=== PATIENT | female | born 1970 | race Caucasian/White ===

== ENCOUNTER → 2016-11-29 | Outpatient (CLI) | payer OTHER ==
[~2016-11-29] MED LIST: BUPIVACAINE HCL 0.25% 10 ML VIAL As Ordered ONE; BUPIVACAINE HCL 0.25% 30 ML VIAL As Ordered ONE; TRIAMCINOLONE ACETONIDE SUSP 40 MG/ML VIAL (J3301) As Ordered ONE; diazePAM 5 MG TAB As Ordered ONE; oxyCODONE 5MG TAB As Ordered ONE
--- NOTE | 2016-12-06 00:01 | ECWPNPC ---
PATIENT NAME: NAVJOT CERDA : 1970 GENDER: FEMALE VISIT DATE: 11/29/2016 DISCHARGE DATE: 11/29/16 1416 VISIT LOCKED DATE TIME: PHYSICIAN: ANDREW IVEY RESOURCE: ANDREW IVEY REASON FOR APPOINTMENT 1. TPI-NECK/ARM HISTORY OF PRESENT ILLNESS HISTORY OF PRESENT ILLNESS: PAIN THE PATIENT DESCRIBES THE PAIN... FALL RISK SCREENING: SCREENING :NO FALLS IN THE PAST YEAR CURRENT MEDICATIONS TAKING NEXIUM 20 MG CAPSULE DELAYED RELEASE 1 CAPSULE ORALLY ONCE A DAY NEEDED, NOTES: [id number] MEDICATION LIST REVIEWED AND RECONCILED WITH THE PATIENT PAST MEDICAL HISTORY SEVERAL MINI STROKES REFLUX HX OF VON WILLIEBRANDS ALLERGIES SULFA (FOR ALLERGY USE ONLY): RASH: ALLERGY TETANUS-DIPHTHERIA TOXOIDS TD: ALLERGY PENICILLIN (FOR ALLERGIES USE ONLY): ALLERGY FLAGYL: RASH, BREATHING DIFFICULTIES: ALLERGY SOCIAL HISTORY GENERAL: TOBACCO USE ARE YOU A:NONSMOKER LEARNING BARRIERS / SPECIAL NEEDS ORIENTED TO PLAN OF CARE: PATIENT, PAIN MANAGEMENT PATIENT, ORIENTED TO PLAN OF CARE: PATIENT, PAIN MANAGEMENT PATIENT. NEW PATIENT PAIN DIARY TODAY'S VISITNOTES FROM 0-10, WHAT LEVEL IS YOUR PAIN TODAY?0 PAIN CLINIC PFS, CLERGY, PUBLIC HEALTH REFERRALS PFS REFERRAL NEEDED?NO CLERGY REFERRAL NEEDED?NO PUBLIC HEALTH REFERRAL NEEDED?NO WAS THE PROVIDER NOTIFIED OF ANY PERTINENT INFO?NO PFS REFERRAL NEEDED?NO CLERGY REFERRAL NEEDED?NO PUBLIC HEALTH REFERRAL NEEDED?NO WAS THE PROVIDER NOTIFIED OF ANY PERTINENT INFO?NO REVIEW OF SYSTEMS CONSTITUTIONAL: ANY CHANGE IN YOUR MEDICAL CONDITION? NO . CHILLS NO . FEVER NO . INFECTION: DO YOU HAVE NEW INFECTIONS? NO . DO YOU HAVE HISTORY OF MRSA? NO . MUSCULOSKELETAL: ANY NEW PATTERNS OF PAIN OR NUMBNESS? NO . GASTROENTEROLOGY: ANY NEW CHANGE IN BOWEL CONTROL? NO . GENITOURINARY: ANY NEW CHANGE IN BLADDER CONTROL? NO . IS THERE A CHANCE YOU COULD BE ? NO . HEMATOLOGY/LYMPH: DO YOU TAKE ANY BLOOD THINNERS? (FOR EXAMPLE- COUMADIN, PLAVIX, AGGRENOX, PLATEL, PRADAXA, OR XARELTO) NO . WHEN WAS YOUR LAST DOSE? DATE: TIME: . NEUROLOGY: HAVE YOU FALLEN IN THE PAST 6 MONTHS? NO . ANY NEW EXTREMITY NUMBNESS OR WEAKNESS? NO . CARDIOLOGY: DO YOU HAVE A PACEMAKER OR DEFIBRILLATOR? NO . RESPIRATORY: HAVE YOU BEEN SICK IN THE PAST WEEK? NO . FEVER NO . FLU LIKE SYMPTOMS? NO . COUGH NO . INTEGUMENTARY: DO YOU HAVE ANY RASHES OR OPEN SORES? NO . ALLERGIC/IMMUNO: ARE YOU ALLERGIC TO SHELLFISH OR IV DYE? NO . ANY NEW ALLERGIES? NO . PSYCHIATRIC: DO YOU HAVE THOUGHTS OF HURTING YOURSELF OR SOMEONE ELSE? NO . ARE YOU ABUSED, NEGLECTED, OR IN AN UNSAFE ENVIRONMENT? NO . ENDOCRINOLOGY: ARE YOU DIABETIC? NO . OTHER: DO YOU NEED ANY PRESCRIPTIONS? YES PRESCRIBED LYRICA BY AMPARO HAS NOT OBTAINED/DUE TO AUTHORIZATION ? . IF YES, PLEASE LIST: ____ . ANY NEW PROBLEMS WITH YOUR MEDICATIONS? NO . WHEN DID YOU LAST EAT? ____ . WHEN DID YOU LAST DRINK? ____ . WHAT DID YOU LAST DRINK? ____ . NAME OF PERSON DRIVING YOU HOME? ____ . DO YOU HAVE ANY OTHER QUESTIONS OR CONCERNS NO . REVIEWED BY: PROVIDER: . ASSESSMENTS MYALGIA - M79.1 (PRIMARY) PROCEDURES PN TRIGGER POINT INJECTION WITH STEROIDS PRE PROCEDURE DIAGNOSIS 1. MYALGIA 2. PAIN AT BILATERAL NECK AREA AND RIGHT SHOULDER AREA POST PROCEDURE DIAGNOSIS 1. MYALGIA 2. PAIN AT BILATERAL NECK AREA AND RIGHT SHOULDER AREA PROCEDURE TRIGGER POINT INJECTION AT BILATERAL NECK AREA AND RIGHT SHOULDER AREA SURGEON DR. ANDREW IVEY DIRECTOR CORPORATE COMMUNICATIONS NONE ANESTHESIA LOCAL PRE PROCEDURE NOTE THE PATIENT HAS A HISTORY OF CHRONIC PAIN AT THE RIGHT AND LEFT NECK AREA AND RIGHT SHOULDER AREA. I EVALUATE THE PATIENT AND REVIEWED THE CHART. THERE IS EVIDENCE OF BANDS OF TISSUE WITH RESTRICTION OF MOVEMENT AND PRESENCE OF TRIGGER POINT AT THE AFFECTED AREA. I WENT OVER THE RISKS, ALTERNATIVES, AND BENEFITS ASSOCIATED WITH THIS PROCEDURE. THE PATIENT WOULD LIKE TO PROCEED AND GIVE CONSENT TO PERFORMED THE PROCEDURE. THE PATIENT DENIES UNEXPLAINABLE WEIGHT LOSS, FEVER, CHILLS, OR NEW CHANGES IN URINARY OR BOWEL CONTROL DESCRIPTION OF PROCEDURE THE PATIENT WAS BROUGHT TO THE PROCEDURE ROOM AND PLACED IN THE SITTING POSITION. THE AREA WAS CLEANED WITH ALCOHOL. THE PROCEDURE WAS DONE USING ASEPTIC STERILE TECHNIQUE. I CHECKED LATERALITY AND THE LEVEL WHERE THE PROCEDURE WAS GOING TO BE PERFORMED WITH THE PATIENT AND THE SUPPORTING STAFF AT THE MOMENT OF THE TIME OUT IN THE PROCEDURE ROOM. USING A 25-GAUGE NEEDLE, TRIGGER POINTS WERE INJECTED AT THE RIGHT AND LEFT NECK AREA AND RIGHT SHOULDER AREA WITH A TOTAL OF 40 ML OF BUPIVACAINE 0.25% AND KENALOG 40 MG. THERE WAS NO EVIDENCE OF BLOOD, PARESTHESIA OR CEREBROSPINAL FLUID DURING THE PROCEDURE. THE PATIENT WAS SENT TO THE RECOVERY ROOM. THE PATIENT WAS MOVING THE EXTREMITIES AND DOING WELL. THERE WAS NO COMPLICATION DURING THE PROCEDURE POST PROCEDURE NOTE THE PATIENT WILL BE SEEN IN A FOLLOW UP IN THE NEXT FEW WEEKS. INSTRUCTIONS WERE GIVEN, QUESTIONS WERE ANSWERED, AND THE PATIENT EXPRESSED UNDERSTANDING AND AGREES WITH THE PLAN. INSTRUCTIONS WERE GIVEN, QUESTIONS WERE ANSWERED, PATIENT REPORTS UNDERSTANDING AND AGREES WITH THE PLAN. I, NNAMDI CONTE, DOCUMENTED THE ABOVE INFORMATION ACTING A SCRIBE FOR DR. IVEY. I HAVE REVIEWED THE ABOVE DOCUMENT, WRITTEN BY NNAMDI CONTE SCRIBLois AND I VERIFY THAT IT IS ACCURATE. PROCEDURE CODES 84013 INJECT TRIGGER POINTS 3/> FOLLOW UP 3 WEEKS ELECTRONICALLY SIGNED BY ANDREW IVEY MD ON 12/05/2016 AT 09:43 PM EST DISCLAIMER : THIS IS A VISIT SUMMARY EXTRACTED FROM THE [employer] CHART. IT IS NOT A COPY OF THE [employer] PROGRESS NOTE. PAPA
== END ==
LOC: M PAIN 13:00
PROVIDERS: ATTEND Anesthesiology
DX: G89.29 Other chronic pain (principal); M79.1 Myalgia; M54.2 Cervicalgia; M25.511 Pain in right shoulder; K21.9 Gastro-esophageal reflux disease without esophagitis; Z88.2 Allergy status to sulfonamides; Z88.7 Allergy status to serum and vaccine; Z88.0 Allergy status to penicillin; Z88.8 Allergy status to other drugs, medicaments and biological substances; Z79.899 Other long term (current) drug therapy; Z86.73 Personal history of transient ischemic attack (TIA), and cerebral infarction without residual deficits; Z86.2 Personal history of diseases of the blood and blood-forming organs and certain disorders involving the immune mechanism
CPT/HCPCS: 20553; J3301

== ENCOUNTER → 2016-12-18 | Outpatient (CLI) | payer OTHER ==
--- NOTE | 2017-01-03 01:21 | ECWPNPC ---
PATIENT NAME: NAVJOT CERDA : 1970 GENDER: FEMALE VISIT DATE: 12/18/2016 DISCHARGE DATE: 12/18/16 1113 VISIT LOCKED DATE TIME: PHYSICIAN: CAM MANNING RESOURCE: CAM MANNING REASON FOR APPOINTMENT 1. POST PROCEDURE-CERVICAL HISTORY OF PRESENT ILLNESS HISTORY OF PRESENT ILLNESS: PAIN THE PATIENT DESCRIBES THE PAIN... FALL RISK SCREENING: SCREENING :NO FALLS IN THE PAST YEAR TODAY'S VISIT: NOTES: S/P TRIGGER POINT INJECTIONS ON 11/29/2016. JUNCTIONS WERE TO THE RIGHT AND LEFT NECK AND THE RIGHT SHOULDER AREA. RATES PAIN LEVEL PRIOR TO INJECTION A 4-5/10 POSTINJECTION 12/21 AND HAS CONTINUED TILL THIS VISIT.. CURRENT MEDICATIONS TAKING NEXIUM 20 MG CAPSULE DELAYED RELEASE 1 CAPSULE ORALLY ONCE A DAY NEEDED MEDICATION LIST REVIEWED AND RECONCILED WITH THE PATIENT PAST MEDICAL HISTORY SEVERAL MINI STROKES REFLUX HX OF VON WILLIEBRANDS ALLERGIES SULFA (FOR ALLERGY USE ONLY): RASH: ALLERGY TETANUS-DIPHTHERIA TOXOIDS TD: ALLERGY PENICILLIN (FOR ALLERGIES USE ONLY): ALLERGY FLAGYL: RASH, BREATHING DIFFICULTIES: ALLERGY SOCIAL HISTORY GENERAL: TOBACCO USE ARE YOU A:NONSMOKER LEARNING BARRIERS / SPECIAL NEEDS ORIENTED TO PLAN OF CARE: PATIENT, PAIN MANAGEMENT PATIENT, ORIENTED TO PLAN OF CARE: PATIENT, PAIN MANAGEMENT PATIENT. NEW PATIENT PAIN DIARY TODAY'S VISITNOTES FROM 0-10, WHAT LEVEL IS YOUR PAIN TODAY?0 PAIN CLINIC PFS, CLERGY, PUBLIC HEALTH REFERRALS PFS REFERRAL NEEDED?NO CLERGY REFERRAL NEEDED?NO PUBLIC HEALTH REFERRAL NEEDED?NO WAS THE PROVIDER NOTIFIED OF ANY PERTINENT INFO?NO PFS REFERRAL NEEDED?NO CLERGY REFERRAL NEEDED?NO PUBLIC HEALTH REFERRAL NEEDED?NO WAS THE PROVIDER NOTIFIED OF ANY PERTINENT INFO?NO REVIEW OF SYSTEMS CONSTITUTIONAL: ANY CHANGE IN YOUR MEDICAL CONDITION? NO . CHILLS NO . FEVER NO . INFECTION: DO YOU HAVE NEW INFECTIONS? NO . DO YOU HAVE HISTORY OF MRSA? NO . MUSCULOSKELETAL: ANY NEW PATTERNS OF PAIN OR NUMBNESS? NO . GASTROENTEROLOGY: ANY NEW CHANGE IN BOWEL CONTROL? NO . ACID REFLUX INCREASED NEED FOR CLARITIN . GENITOURINARY: ANY NEW CHANGE IN BLADDER CONTROL? NO . IS THERE A CHANCE YOU COULD BE ? NO . HEMATOLOGY/LYMPH: DO YOU TAKE ANY BLOOD THINNERS? (FOR EXAMPLE- COUMADIN, PLAVIX, AGGRENOX, PLATEL, PRADAXA, OR XARELTO) NO . WHEN WAS YOUR LAST DOSE? DATE: TIME: . NEUROLOGY: HAVE YOU FALLEN IN THE PAST 6 MONTHS? NO . ANY NEW EXTREMITY NUMBNESS OR WEAKNESS? NO . CARDIOLOGY: DO YOU HAVE A PACEMAKER OR DEFIBRILLATOR? NO . RESPIRATORY: HAVE YOU BEEN SICK IN THE PAST WEEK? YES, SINUS CONGESTIONS AND NPC 3 WEEKS. [facility]--NO TREATMENT . FEVER NO . FLU LIKE SYMPTOMS? NO . COUGH YES, NON-PRODUCTIVE . INTEGUMENTARY: DO YOU HAVE ANY RASHES OR OPEN SORES? BASE OF NECK ON RIGHT . ALLERGIC/IMMUNO: ARE YOU ALLERGIC TO SHELLFISH OR IV DYE? NO . ANY NEW ALLERGIES? NO . PSYCHIATRIC: DO YOU HAVE THOUGHTS OF HURTING YOURSELF OR SOMEONE ELSE? NO . ARE YOU ABUSED, NEGLECTED, OR IN AN UNSAFE ENVIRONMENT? NO . ENDOCRINOLOGY: ARE YOU DIABETIC? NO . OTHER: DO YOU NEED ANY PRESCRIPTIONS? NO . IF YES, PLEASE LIST: ____ . ANY NEW PROBLEMS WITH YOUR MEDICATIONS? NO . WHEN DID YOU LAST EAT? ____ . WHEN DID YOU LAST DRINK? ____ . WHAT DID YOU LAST DRINK? ____ . NAME OF PERSON DRIVING YOU HOME? ____ . DO YOU HAVE ANY OTHER QUESTIONS OR CONCERNS YES, WAITING FOR APPROVAL FOR MEDS. . HEENT: GENERAL PERSISTANT COLD SYMPTOMS. HASAL CONGESTION . REVIEWED BY: PROVIDER: CAM COX . VITAL SIGNS WT 210 LBS, HT 67 IN, BMI 32.89 INDEX, BP 129/80 MM HG, HR 90 /MIN, RR 16 /MIN, TEMP 97.6 F, OXYGEN SAT % 97, NA INITIALS TL 0953, REVIEWED BY: AD. EXAMINATION GENERAL EXAMINATION: GENERAL APPEARANCE:FATIGUED, FEMALE IN NO ACUTE DISTRESS. PSYCHALERT , ORIENTED X 3 , APPROPRIATE MOOD AND AFFECT , TALKATIVE. HEENT:NORMOCEPHALIC, PAIN WITH MOVEMENT OF PINNA, MILD SINUS TENDERNESS, RIGHT SIDE.. NECK:RIGHT ANTERIOR CERVICAL LYMPHADENOPATHY DECREASED IN SIZE.. DECREASED NECK ROTATION TO RIGHT. CHEST:SUPRACLAVICULAR TENDERNESS BILATERALLY. FULL THORACIC EXCURSION NOTED.. LUNGS:CLEAR TO AUSCULTATION BILATERALLY, NO WHEEZES RALES OR RHONCHI. HEART:HEART RATE REGULAR S1 AND S2 NO MURMURS CLICKS OR RUBS.. MUSCULOSKELETAL:MUSCLE STRENGTH TESTING 5/5 BILATERAL UPPER EXTREMITIES. POINT TENDERNESS NOTED OVER CERVICAL SPINOUS PROCESSES AND ALONG THE CERVICAL PARASPINOUS MUSCLES. TIGHT FIBROUS BANDS IDENTIFIED OVER RIGHT SCAPULA AND RIGHT TRAPEZIUS MUSCLES. DECREASED RANGE OF MOTION WITH NECK ROTATION PARTICULARLY TO THE RIGHT. . JOINTS:TENDERNESS WITH PALPATION OVER THE MEDIAL AND LATERAL EPICONDYLE RIGHT SIDE FULL RANGE OF MOTION AT THE RIGHT ELBOW AND SHOULDER WELL ON THE LEFT.. PERIPHERAL PULSES:RADIAL PULSES INTACT 2+BILATERALLY. ULNAR PULSES 1+ BILATERALLY.. 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 ,FACET JOINT INJECTION MATERIAL WAS PRINTED,FACET JOINT INJECTION: YOUR EXPERIENCE MATERIAL WAS PRINTED,FACET JOINT INJECTION: YOUR EXPERIENCE MATERIAL WAS PRINTED. PREVENTIVE MEDICINE PAIN CLINIC TEACHING: MEDICATIONS PRINTED INFORMATION ON ZONISAMIDE GIVEN TO PATIENT, PATIENT GIVEN THE OPPORTUNITY TO ASK QUESTIONS REGARDING THE NEW MED.. PROCEDURE CODES FA211 ESTABILISHED PATIENT [facility] CHARGE DISPOSITION & COMMUNICATION FOLLOW UP AFTER INJECTION ELECTRONICALLY SIGNED BY ENMA STARR ON 01/02/2017 AT 01:35 PM EST DISCLAIMER : THIS IS A VISIT SUMMARY EXTRACTED FROM THE [employer] CHART. IT IS NOT A COPY OF THE [employer] PROGRESS NOTE. PAPA
== END ==
LOC: M PAIN 09:40
PROVIDERS: ATTEND Nurse Practitioner Family
DX: Z09 Encounter for follow-up examination after completed treatment for conditions other than malignant neoplasm (principal); G89.29 Other chronic pain; M79.1 Myalgia; M79.2 Neuralgia and neuritis, unspecified; M12.88 Other specific arthropathies, not elsewhere classified, other specified site; K21.9 Gastro-esophageal reflux disease without esophagitis; Z86.2 Personal history of diseases of the blood and blood-forming organs and certain disorders involving the immune mechanism; Z86.73 Personal history of transient ischemic attack (TIA), and cerebral infarction without residual deficits; Z88.2 Allergy status to sulfonamides; Z88.8 Allergy status to other drugs, medicaments and biological substances; Z88.0 Allergy status to penicillin; Z79.899 Other long term (current) drug therapy

== ENCOUNTER → 2017-09-02 | Outpatient (CLI) | payer OTHER ==
[~2017-09-02] MED LIST changes: -BUPIVACAINE HCL 0.25% 10 ML VIAL As Ordered ONE; -BUPIVACAINE HCL 0.25% 30 ML VIAL As Ordered ONE; +PROHANCE 279.3MG/ML 15ML VIAL (A9576) As Ordered ONE; +PROHANCE 279.3MG/ML 5ML VIAL (A9576) As Ordered ONE; -TRIAMCINOLONE ACETONIDE SUSP 40 MG/ML VIAL (J3301) As Ordered ONE; -diazePAM 5 MG TAB As Ordered ONE; -oxyCODONE 5MG TAB As Ordered ONE
--- NOTE | 2017-09-02 15:23 | REP ---
CAROTID ULTRASOUND: Real-time ultrasound evaluation and duplex Doppler interrogation of the extracranial carotid vasculature is performed. There is not significant plaquing or narrowing in the carotid bulbs, internal and external carotid arteries. Luminal narrowing is less than 50%. There is no evidence of hemodynamically significant stenosis of either internal carotid artery. Normal flow velocities are seen. The vertebral arteries demonstrate normal direction of flow. RIGHT LEFT Peak systolic velocity ICA 73.8 cm/s 82.8 cm/s End diastolic velocity ICA 28.2 cm/s 24 cm/s Peak systolic velocity CCA 136 cm/s 122 cm/s Peak systolic velocity ECA 83.9 cm/s 95.7 cm/s ICA/CCA ratio 0.54 0.68 IMPRESSION: Bilateral luminal narrowing of the internal carotid arteries less than 50%. No evidence of hemodynamically significant stenosis. Signed by Rivas Perez MD 09/02/2017 03:14 P
--- NOTE | 2017-09-06 07:59 | REP ---
MRI BRAIN AND INTERNAL AUDITORY CANALS WITHOUT AND WITH IV GADOLINIUM: HISTORY: Bilateral sensorineural hearing loss. Comparison study is from July 30, 2016. This was interpreted as showing no acute abnormality. TECHNIQUE: Axial and coronal T1 and T2-weighted sequences include turbo spin echo, FLAIR, spin echo and diffusion weighted sequences. The study includes thin section imaging through the internal auditory canals. The gadolinium enhancement dose 20 mL of intravenous ProHance. MRI FINDINGS: No bony calvarial lesion is seen. No intraorbital abnormality is seen. There is no MR evidence of significant paranasal sinus disease. Lateral, third, fourth ventricles are normal in size and position. Diffusion weighted scan show no evidence to suggest acute ischemia or other cause of restricted diffusion. Again noted on FLAIR and turbo spin echo T2-weighted scans are scattered subcortical and periventricular T2 hyperintensity bilaterally consistent with small vessel changes. These are unchanged from the study done a year ago. There is no evidence of intracranial mass lesion or infarction. No extra-axial fluid collection or midline shift is seen. Thin section imaging through the internal auditory canals demonstrate that the structures are symmetric. Seventh and eighth cranial nerves are unremarkable. Post gadolinium enhanced images show no intercanalicular or extra canalicular enhancement. There is no evidence of CP angle cistern mass. Vestibular and cochlear apparatus appear intact bilaterally. Enhancement is seen in normal vascular structures. No abnormal gadolinium enhancement is appreciated. IMPRESSION: Nonspecific foci of T2 hyperintensity again noted most compatible with small vessel atherosclerotic changes. Stable from the study done 1 year ago. Otherwise negative MRI study of the brain and internal auditory canals. Signed by Arnaldo Ambrocio MD 09/06/2017 02:54 P
== END ==
LOC: M RAD 13:51
PROVIDERS: ATTEND Otolaryngology
DX: H90.3 Sensorineural hearing loss, bilateral (principal); G90.01 Carotid sinus syncope
CPT/HCPCS: 70553; 93880; A9576

== ENCOUNTER → 2017-11-20 | Outpatient (CLI) | payer OTHER | LOC: M RAD 09:48 | DX: Z12.31 Encounter for screening mammogram for malignant neoplasm of breast (principal) | CPT/HCPCS: 77067 ==

== ENCOUNTER → 2018-01-21 | Outpatient (CLI) | payer OTHER | LOC: M LRY 18:08 | DX: M19.071 Primary osteoarthritis, right ankle and foot (principal) | CPT/HCPCS: 73564; G0463 ==

== ENCOUNTER 2018-03-05 06:11 | Inpatient (IN) | payer OTHER ==
[2018-03-05 06:41] LABS: HEMATOCRIT 41.2 % (36.0-47.0); HEMOGLOBIN 13.8 g/dl (12.0-15.5); MEAN CORPUSCULAR HGB CONC 33.5 g/dl (32.0-36.5); MEAN CORPUSCULAR VOLUME 86.6 fl (80.0-96.0); PLATELET COUNT, AUTOMATED 351 10^3/uL (150-450); RED BLOOD COUNT 4.76 10^6/uL (4.00-5.40); RED CELL DISTRIBUTION WIDTH 12.7 % (11.5-14.5); WHITE BLOOD COUNT 6.4 10^3/uL (4.0-10.0)
[2018-03-05] MEDS: LR 1,000 ML IV ×3 (06:45→15:42)
[2018-03-05 06:56] LABS: CONTROL LINE HCG INT CTR LINE PRESENT; HCG, SERUM QUALITATIVE NEGATIVE (NEGATIVE)
[2018-03-05] MEDS ORDERED: fentaNYL 100 MCG/2 ML INJECTION (J3010) As Ordered ×2 (06:58→07:45)
[2018-03-05] MEDS ORDERED: MIDAZOLAM INJ 2 MG/2 ML VIAL (J2250) As Ordered (06:58)
[2018-03-05] MEDS ORDERED: ROCURONIUM BROMIDE 50 MG/5 ML VIAL As Ordered ×2 (07:00→09:55)
[2018-03-05] MEDS ORDERED: PROPOFOL 200 MG/20 ML VIAL As Ordered (07:01)
[2018-03-05] MEDS ORDERED: LIDOCAINE 2% INJ 100 MG/5 ML SDV (FOR ANES.) As Ordered (07:01)
[2018-03-05] MEDS: CLINDAMYCIN 900 MG in APPROPRIATE DILUENT 1 EA IV ×3 (07:05→22:38)
[2018-03-05] MEDS ORDERED: SCOPOLAMINE 1MG TRANSDERMAL PATCH As Ordered (07:11)
[2018-03-05] MEDS: GENTAMICIN 100 MG in APPROPRIATE DILUENT 1 EA IV ×3 (07:51→22:38)
[2018-03-05] MEDS ORDERED: dexameTHASONE 4 MG/ML 1ML VIAL (J1100) As Ordered (07:57)
[2018-03-05] MEDS ORDERED: KETOROLAC 60 MG/2 ML VIAL (J1885) As Ordered (07:57)
[2018-03-05] MEDS ORDERED: ONDANSETRON 4MG/2ML VIAL (J2405) As Ordered (07:57)
[2018-03-05] MEDS: BUPIVACAINE HCL 0.25% 30 ML VIAL As Ordered (08:30)
[2018-03-05] MEDS ORDERED: HYDROmorphone HCL 2 MG/ML 1ML VIAL (J1170) As Ordered (08:57)
[2018-03-05] MEDS ORDERED: SUGAMMADEX SODIUM 500 MG/5 ML VIAL (BRIDION) As Ordered (10:19)
[2018-03-05] MEDS: BUPIVACAINE LIPOSOME/PF 1.3% 20 ML VIAL (13.3MG/ML)(EXPAREL) As Ordered (10:51)
[2018-03-05] MEDS: METHYLENE BLUE 0.5% (5MG/ML) 10 ML AMP (PROVAYBLUE)(Q9968 PER 1MG) As Ordered (10:51)
[2018-03-05] MEDS ORDERED: LABETALOL HCL 100 MG/20 ML VIAL As Ordered (11:30)
[2018-03-05] MEDS: ONDANSETRON 4MG/2ML VIAL (J2405) IV (12:24)
[2018-03-05] MEDS ORDERED: HYDROmorphone HCL 1 MG/ML SYRINGE (J1170) IV (12:30)
[2018-03-05] MEDS ORDERED: METOCLOPRAMIDE INJ 10MG/2ML VIAL (J2765) As Ordered (12:39)
[2018-03-05] MEDS: METOCLOPRAMIDE INJ 10MG/2ML VIAL (J2765) IV (12:52)
[2018-03-05] MEDS: fentaNYL 100 MCG/2 ML INJECTION (J3010) IV (12:55)
[2018-03-05] MEDS: PERCOCET 5MG/325MG TAB PO (12:55)
[2018-03-05 14:33] LABS: iSTAT CA++ 4.6 MG/DL (4.5-5.3)
[2018-03-05] MEDS ORDERED: KETOROLAC 30 MG/ML VIAL (J1885) IV (15:00)
[2018-03-05] MEDS ORDERED: ONDANSETRON 4MG/2ML VIAL (J2405) IV (15:15)
[2018-03-05] MEDS ORDERED: PROMETHAZINE INJ 25 MG/ML VIAL (J2550) IV (15:15)
[2018-03-05] MEDS ORDERED: PERCOCET 5MG/325MG TAB PO ×2 (15:15)
[2018-03-05] MEDS: KETOROLAC 30 MG/ML VIAL (J1885) IV (17:24)
[2018-03-05] MEDS: DOCUSATE SODIUM 100 MG CAP PO (22:38)
[2018-03-06] MEDS: KETOROLAC 30 MG/ML VIAL (J1885) IV ×3 (00:36→12:00)
[2018-03-06] MEDS: LR 1,000 ML IV (00:36)
[2018-03-06] MEDS: GENTAMICIN 100 MG in APPROPRIATE DILUENT 1 EA IV (05:55)
[2018-03-06] MEDS: CLINDAMYCIN 900 MG in APPROPRIATE DILUENT 1 EA IV (06:30)
[2018-03-06 06:55] LABS: BASO % 0.2 % (0.0-1.0); EOS % 0.1 % (0.0-3.0); HEMATOCRIT 28.8 % (36.0-47.0); IMMATURE GRANULOCYTE % 0.3 % (0-3.0); MEAN CORPUSCULAR HEMOGLOBIN 28.5 pg (27.0-33.0); MEAN CORPUSCULAR HGB CONC 33.3 g/dl (32.0-36.5); MEAN CORPUSCULAR VOLUME 85.5 fl (80.0-96.0); MONO # 0.8 10^3/uL (0.0-0.8); MONO % 8.4 % (0.0-5.0); NEUTROPHILS # 6.3 10^3/uL (1.8-7.7); PLATELET COUNT, AUTOMATED 299 10^3/uL (150-450); RED BLOOD COUNT 3.37 10^6/uL (4.00-5.40); RED CELL DISTRIBUTION WIDTH 12.8 % (11.5-14.5); WHITE BLOOD COUNT 9.1 10^3/uL (4.0-10.0)
[2018-03-06 07:01] LABS: HEMOGLOBIN 9.6 g/dl (12.0-15.5)
[2018-03-06] MEDS: DOCUSATE SODIUM 100 MG CAP PO (08:37)
[2018-03-06] MEDS ORDERED: IBUPROFEN 800 MG TAB PO (11:00)
[2018-03-06] MEDS: IBUPROFEN 800 MG TAB PO (14:13)
== END 2018-03-06 14:30 | disposition home or self-care (01) | DRG 743 ==
LOC: M OR 06:11 → M PED 14:09
PROC: 0UT90ZZ Resection of Uterus, Open Approach (ICD-10-PCS; principal; 2018-03-05 07:30)
PROC: 0UT70ZZ Resection of Bilateral Fallopian Tubes, Open Approach (ICD-10-PCS; 2018-03-05 07:30)
DX: N80.0 Endometriosis of uterus (principal); N83.8 Other noninflammatory disorders of ovary, fallopian tube and broad ligament; N93.8 Other specified abnormal uterine and vaginal bleeding; Z53.31 Laparoscopic surgical procedure converted to open procedure; N73.6 Female pelvic peritoneal adhesions (postinfective)

== ENCOUNTER 2022-12-19 06:55 | Observation (INO) | payer OTHER ==
[~2022-12-19] VITALS: Ht 170.2 cm; Wt 107.0 kg
[~2022-12-19 06:55] MED LIST changes: +CLINDAMYCIN 900 MG in IV 1 EA IV ONE; +COLA100C5 PO; +FAMO40TA3 PO; +HEPARIN SOD (PORCINE) 5000UNITS/ML 1ML VIAL/SYRINGE SQ ONE; +IBUP80TA PO; +LISI5TAB11 PO; +NEXI20CA PO; +NS 1,000 ML IV SCH; +OXYC1TAB23 PO; -PROHANCE 279.3MG/ML 15ML VIAL (A9576) As Ordered ONE; -PROHANCE 279.3MG/ML 5ML VIAL (A9576) As Ordered ONE
[2022-12-19] MEDS ORDERED: SCOPOLAMINE 1MG TRANSDERMAL PATCH TOP ONE (07:50)
[2022-12-19] MEDS ORDERED: LR 1,000 ML IV SCH (07:50)
[2022-12-19] MEDS ORDERED: GENTAMICIN SULF 80MG/2ML VIAL As Ordered ONE ×2 (11:22→15:50)
[2022-12-19] MEDS ORDERED: BUPIVACAINE HCL 0.25% 10ML VIAL As Ordered ONE (11:22)
[2022-12-19] MEDS ORDERED: BUPIVACAINE LIPOSOME/PF 1.3% 20ML VIAL (13.3MG/ML)(EXPAREL) As Ordered ONE (11:22)
[2022-12-19] MEDS ORDERED: MIDAZOLAM INJ 2MG/2ML VIAL As Ordered ONE (11:30)
[2022-12-19] MEDS ORDERED: fentaNYL 100 MCG/2 ML INJECTION As Ordered ONE ×2 (11:31→16:49)
[2022-12-19] MEDS ORDERED: propofoL 200 MG/20 ML VIAL As Ordered ONE ×2 (11:31→15:26)
[2022-12-19] MEDS ORDERED: LIDOCAINE 2% 100MG/5ML SDV (FOR ANES.) As Ordered ONE (11:31)
[2022-12-19] MEDS ORDERED: ROCURONIUM BROMIDE 50MG/5ML VIAL As Ordered ONE ×2 (11:31→15:38)
[2022-12-19] MEDS ORDERED: ONDANSETRON 4MG 2ML VIAL As Ordered ONE (11:31)
[2022-12-19] MEDS ORDERED: HYDROmorphone HCL 2MG/ML 1ML VIAL As Ordered ONE (12:02)
[2022-12-19] MEDS ORDERED: ACETAMINOPHEN 1000MG 100ML IV BAG As Ordered ONE (12:31)
[2022-12-19] MEDS ORDERED: SUGAMMADEX SODIUM 500 MG/5 ML VIAL (BRIDION) As Ordered ONE (12:51)
[2022-12-19] MEDS ORDERED: PHENYLephrine 500MCG 5ML (100MCG/ML) SYRINGE As Ordered ONE (12:51)
[2022-12-19] MEDS ORDERED: ePHEDrine SULFATE 25 MG/5 ML(5MG/ML) SYRINGE As Ordered ONE (12:57)
[2022-12-19] MEDS ORDERED: CLINDAMYCIN 900MG/50ML PREMIX BAG As Ordered ONE (16:11)
[2022-12-19] MEDS ORDERED: HYDROMORPHONE HCL 0.5 MG/ 0.5 ML SYRINGE IV PRN (18:05)
[2022-12-19] MEDS ORDERED: ONDANSETRON 4MG 2ML VIAL IV PRN ×2 (18:05→18:55)
[2022-12-19] MEDS ORDERED: METOCLOPRAMIDE INJ 10MG/2ML VIAL IV PRN (18:05)
[2022-12-19] MEDS: oxyCODONE 5MG TAB PO PRN ×2 (18:42→19:28)
[2022-12-19] MEDS: fentaNYL 100 MCG/2 ML INJECTION IV PRN ×4 (18:42→19:11)
[2022-12-19] MEDS ORDERED: HEPARIN SOD (PORCINE) 5000UNITS/ML 1ML VIAL/SYRINGE SQ SCH (18:55)
[2022-12-19] MEDS ORDERED: MORPHINE 2 MG/ML 1ML VIAL IV PRN (18:55)
[2022-12-19 20:30] VITALS: BP 131/73
[2022-12-19] MEDS: traMADol 50 MG TAB PO PRN (20:57)
[2022-12-19 21:00] VITALS: BP 151/82
[2022-12-19 21:30] VITALS: BP 150/80
[2022-12-19 22:00] VITALS: O2SAT 97
[2022-12-19 22:30] VITALS: BP 141/78
[2022-12-19] MEDS: ACETAMINOPHEN TAB 650MG DOSE (2X325MG) PO PRN (22:41)
[2022-12-19] MEDS: LR 1,000 ML IV SCH (22:41)
[2022-12-19] MEDS: HEPARIN SOD (PORCINE) 5000UNITS/ML 1ML VIAL/SYRINGE SQ SCH (22:42)
[2022-12-19 23:30] VITALS: BP 139/76
[2022-12-20 00:30] VITALS: BP 136/75
[2022-12-20] MEDS: CLINDAMYCIN 900 MG in IV 1 EA IV SCH ×2 (00:41→07:47)
[2022-12-20 01:30] VITALS: BP 131/74
[2022-12-20] MEDS: HEPARIN SOD (PORCINE) 5000UNITS/ML 1ML VIAL/SYRINGE SQ SCH ×2 (05:39→14:57)
[2022-12-20] MEDS: LR 1,000 ML IV SCH (05:39)
[2022-12-20] MEDS: traMADol 50 MG TAB PO PRN ×2 (05:40→12:58)
[2022-12-20 06:00] VITALS: BP 132/72
[2022-12-20] MEDS ORDERED: HOME MED LIST COMPLETE! XX SCH (08:25)
[2022-12-20] MEDS ORDERED: NEXI20CA33 PO (08:25)
[2022-12-20] MEDS: ACETAMINOPHEN TAB 650MG DOSE (2X325MG) PO PRN (10:39)
[2022-12-20] MEDS ORDERED: TRAM50TA2 PO (12:26)
[2022-12-20 14:00] VITALS: BP 129/71
== END 2022-12-20 15:40 | disposition home or self-care (01) ==
LOC: M SDC 06:55 → M MS5PR 06:56
PROVIDERS: ADMIT Surgery; ATTEND Surgery
DX: C50.912 Malignant neoplasm of unspecified site of left female breast (principal); Z88.0 Allergy status to penicillin; Z88.2 Allergy status to sulfonamides; Z88.7 Allergy status to serum and vaccine
CPT/HCPCS: 19303; 19350; 19357; 36415; 38525; 64450; 78195; 86850; 86900; 86901; 88305; 88307; 88331; 96374; A9520; C1789; C9290; G0378; J1100; J1170; J2250; J2270; J2370; J2405; J3010

== ENCOUNTER 2023-12-05 06:10 | Day surgery (SDC) | payer OTHER ==
[~2023-12-05] VITALS: Ht 170.2 cm; Wt 77.6 kg
[~2023-12-05 06:10] MED LIST changes: -CLINDAMYCIN 900 MG in IV 1 EA IV ONE; -HEPARIN SOD (PORCINE) 5000UNITS/ML 1ML VIAL/SYRINGE SQ ONE; +NEXI20CA33 PO; -NS 1,000 ML IV SCH; +TAMO20TA8 PO; +TRAM50TA2 PO
[2023-12-05] MEDS ORDERED: CLINDAMYCIN 900 MG in IV 1 EA IV ONE (06:30)
[2023-12-05] MEDS ORDERED: HEPARIN SOD (PORCINE) 5000UNITS/ML 1ML VIAL/SYRINGE SQ ONE (07:00)
[2023-12-05] MEDS ORDERED: propofoL 200 MG/20 ML VIAL As Ordered ONE (07:25)
[2023-12-05] MEDS ORDERED: ONDANSETRON 4MG 2ML VIAL As Ordered ONE (07:25)
[2023-12-05] MEDS ORDERED: LIDOCAINE 2% 100MG/5ML SDV (FOR ANES.) As Ordered ONE (07:25)
[2023-12-05] MEDS ORDERED: fentaNYL 250 MCG/5 ML INJECTION As Ordered ONE (07:25)
[2023-12-05] MEDS ORDERED: ROCURONIUM BROMIDE 50MG/5ML VIAL As Ordered ONE ×2 (07:25→08:56)
[2023-12-05] MEDS ORDERED: MIDAZOLAM INJ 2MG/2ML VIAL As Ordered ONE (07:26)
[2023-12-05] MEDS ORDERED: GENTAMICIN SULF 80MG/2ML VIAL As Ordered ONE (07:26)
[2023-12-05] MEDS ORDERED: SCOPOLAMINE 1MG TRANSDERMAL PATCH TOP ONE (07:30)
[2023-12-05] MEDS ORDERED: dexmedeTOMIDine (4MCG/ML)200MCG/50ML BTL (PRECEDEX) As Ordered ONE (07:33)
[2023-12-05] MEDS ORDERED: ACETAMINOPHEN 1000MG 100ML IV BAG As Ordered ONE (08:32)
[2023-12-05] MEDS ORDERED: SUGAMMADEX SODIUM 500 MG/5 ML VIAL (BRIDION) As Ordered ONE (08:32)
[2023-12-05] MEDS ORDERED: METOCLOPRAMIDE INJ 10MG/2ML VIAL As Ordered ONE (08:50)
[2023-12-05] MEDS ORDERED: LACRILUBE (AKWA TEARS) OPHTH OINT 3.5GM As Ordered ONE (09:02)
[2023-12-05] MEDS ORDERED: MEPERIDINE 25 MG/ML 1ML VIAL IV PRN (10:15)
[2023-12-05] MEDS ORDERED: METOCLOPRAMIDE INJ 10MG/2ML VIAL IV PRN (10:15)
[2023-12-05] MEDS ORDERED: ONDANSETRON 4MG 2ML VIAL IV PRN (10:15)
[2023-12-05] MEDS ORDERED: LR 1,000 ML IV SCH (10:15)
[2023-12-05] MEDS ORDERED: fentaNYL 100 MCG/2 ML INJECTION IV PRN (10:15)
[2023-12-05] MEDS ORDERED: oxyCODONE 5MG TAB PO PRN (10:15)
[2023-12-05] MEDS ORDERED: diphenhydrAMINE 50MG/ML VIAL IV PRN (10:15)
[2023-12-05] MEDS ORDERED: OXYC1TAB23 PO (10:22)
[2023-12-05 11:15] VITALS: BP 121/70; TEMP 97.3; O2SAT 96
== END 2023-12-05 11:45 | disposition home or self-care (01) ==
LOC: M SDC 06:10
PROVIDERS: ATTEND Plastic Surgery Surgery of the Hand
DX: N65.0 Deformity of reconstructed breast (principal); Z85.3 Personal history of malignant neoplasm of breast
CPT/HCPCS: 11970; 19370; 88300; 88302; C9290; J0131; J0665; J1100; J1580; J2250; J2405; J2765; J3010; L8600